=== PATIENT | male | born 1975 | race Caucasian/White ===

== ENCOUNTER → 2016-12-15 | Outpatient (CLI) | payer MEDICARE, OTHER | LOC: YCHH 11:53 | PROVIDERS: ATTEND Family Medicine | DX: I10 Essential (primary) hypertension (principal); R53.83 Other fatigue; E78.5 Hyperlipidemia, unspecified; R60.0 Localized edema ==

== ENCOUNTER → 2017-08-09 | Outpatient (CLI) | payer MEDICARE, OTHER | END | disposition home or self-care (01) | LOC: YCHH 10:06 | PROVIDERS: ATTEND Family Medicine | DX: E78.5 Hyperlipidemia, unspecified (principal); I10 Essential (primary) hypertension; N18.9 Chronic kidney disease, unspecified; D64.9 Anemia, unspecified ==

== ENCOUNTER → 2019-06-15 | Outpatient (CLI) | payer MEDICARE, OTHER | LOC: YCHH 09:20 | PROVIDERS: ATTEND Family Medicine | DX: I10 Essential (primary) hypertension (principal); E78.5 Hyperlipidemia, unspecified; D64.9 Anemia, unspecified; R79.89 Other specified abnormal findings of blood chemistry ==

== ENCOUNTER 2020-05-14 17:59 | Emergency (ER) | payer MEDICARE, OTHER ==
[2020-05-14 18:30] VITALS: O2SAT 97
--- NOTE | 2020-05-14 18:53 | CT ---
EXAM: CT Orbits Without Intravenous Contrast CLINICAL HISTORY: The patient is 44 years old and is Male; fall with right eye pain. Pt is blind. TECHNIQUE: Axial computed tomography images of the orbits without intravenous contrast. Sagittal and coronal reformatted images were created and reviewed. This CT exam was performed using one or more of the following dose reduction techniques: automated exposure control, adjustment of the mA and/or kV according to patient size, and/or use of iterative reconstruction technique. COMPARISON: No relevant prior studies available. FINDINGS: Orbits: Hyperdense right globe which may be from previous retinal hemorrhage. Calcification in the region of the bilateral orbital lenses. Sinuses: Mucosal thickening left maxillary sinus. Right maxillary sinus mucus retention cysts. No air-fluid levels. Mastoid air cells: Right mastoid fluid with osseous sclerotic changes. Visualized left mastoid air cells are clear. Bones/joints: No definite acute fracture identified. Soft tissues: Unremarkable. Dental: Multiple mandibular and maxillary dental caries. IMPRESSION: 1. No definite acute fracture identified. 2. Right mastoid fluid with osseous sclerotic changes. Correlate clinically for chronic mastoiditis. 3. Hyperdense right globe which may be from previous retinal hemorrhage. 4. Multiple dental caries. 5. Mucosal thickening left maxillary sinus. Right maxillary sinus mucus retention cysts. Electronically signed by: Chanel Cortez MD 05/14/2020 6:52 PM CDT
[2020-05-14] MEDS: levoFLOXacin 750MG IV 750 MG in PREMIX BAG 1 BAG IVPB ONE (18:54)
[2020-05-14] MEDS: TETANUS,DIPHTHERIA,PERTUSSIS 1 EA SYG IM ONE (19:00)
--- NOTE | 2020-05-14 19:19 | ED.PDOC ---
History of Present Illness - General Chief Complaint: Laceration Stated Complaint: Laceration right eye Time Seen by Provider: 05/14/20 18:12 Source: patient, RN notes reviewed, Vital Signs reviewed, family - Mother Exam Limitations: no limitations - History of Present Illness Initial Comments: Patient is a 44-year-old white male who presents with his mother with complaints of falling and striking his right eye on the corner of a table. Mother is concerned that the patient cut his eye as there is little fluid leaking from it. Patient denies any pain. Occurred: just prior to arrival Severity: mild Pain Location: face Method of Injury: direct blow - Corner of a table, fall Improving Factors: nothing Worsening Factors: nothing Loss of Consciousness: no loss of consciousness Associated Symptoms (Fall): denies symptoms Allergies/Adverse Reactions: Allergies NO KNOWN ALLERGY Allergy (Verified 05/14/20 18:17) Home Medications: Ambulatory Orders Metoprolol Succinate 05/14/20 Review of Systems - Review of Systems Constitutional: States: no symptoms reported, see HPI. Denies: chills, fever, malaise, weakness EENTM: States: see HPI, eye pain - Patient denies pain., other - Patient is blind already Respiratory: States: no symptoms reported. Denies: cough, short of breath, stridor Cardiology: States: no symptoms reported. Denies: chest pain, palpitations, syncope Gastrointestinal/Abdominal: States: no symptoms reported. Denies: abdominal pain, diarrhea, nausea Genitourinary: States: no symptoms reported Musculoskeletal: States: no symptoms reported. Denies: back pain, neck pain Skin: States: no symptoms reported Neurological: States: see HPI, other - Blindness Endocrine: States: no symptoms reported Hematologic/Lymphatic: States: no symptoms reported All other Systems: No Change from Baseline Past Medical History (General) - Patient Medical History Hx Seizures: No Hx Stroke: No Hx Dementia: No Hx Asthma: No Hx of COPD: No Hx Cardiac Disorders: No Hx Congestive Heart Failure: No Hx Pacemaker: No Hx Hypertension: Yes Hx Thyroid Disease: No Hx Diabetes: No Hx Gastroesophageal Reflux: No Hx Renal Disease: No Hx Cancer: No Hx of HIV: No Hx Hepatitis C: No Hx MRSA: No Surgical History: no surgical history - Vaccination History Hx Tetanus, Diphtheria Vaccination: No Hx Influenza Vaccination: Yes - Social History Hx Tobacco Use: No Hx Alcohol Use: No - Female History Patient is a Female of Child Bearing Age (10 -59 yrs old): No Family Medical History - Family History Mother Family History: Unknown Living Status: Unknown Physical Exam - Physical Exam General Appearance: Alert, Unkempt, Well Developed, Well Hydrated, Well Nourished Head Injury: lacerations - 2 right I there appears to be some serosanguineous fluid draining from the eye. I protection shield was placed. Eye Exam: bilateral abnormal EOM, bilateral other - Patient is blind. Right eye has got corneal clouding. Globe of right eye has what appears to be a laceration with fluid leaking from it. ENT Exam: hearing grossly normal, no dental injury Neck Exam: non-tender, full range of motion, normal alignment Cardiovascular/Respiratory: no M/R/G, normal peripheral pulses, tachycardia Gastrointestinal/Abdominal: normal bowel sounds, non tender, soft Back Exam: normal inspection, no CVA tenderness, no vertebral tenderness Extremity Exam: no evidence of injury, normal range of motion, non-tender Neurologic: no motor/sensory deficits, alert Skin Exam: normal color Progress - Progress Progress: Differential diagnosis: Ruptured globe, orbital wall fracture, skull fracture, intraparenchymal bleed among others. 05/14/20 19:23 Patient accepted at [facility] for further evaluation by ophthalmology. CT scan results in chart as indicated. Patient started on antibiotics including Fortaz and Levaquin. Discussed with the ED physician at [facility], Dr. Hennessy who states she will follow-up with ophthalmology and ensure that the vancomycin get started down there. I discussed the plan of care with the mother and she voices understanding and agreement. Gautam Miles M.D. #[id number] - Results/Orders Results/Orders: EXAM: CT Orbits Without Intravenous Contrast CLINICAL HISTORY: The patient is 44 years old and is Male; fall with right eye pain. Pt is blind. TECHNIQUE: Axial computed tomography images of the orbits without intravenous contrast. Sagittal and coronal reformatted images were created and reviewed. This CT exam was performed using one or more of the following dose reduction techniques: automated exposure control, adjustment of the mA and/or kV according to patient size, and/or use of iterative reconstruction technique. COMPARISON: No relevant prior studies available. \ FINDINGS: Orbits: Hyperdense right globe which may be from previous retinal hemorrhage. Calcification in the region of the bilateral orbital lenses. Sinuses: Mucosal thickening left maxillary sinus. Right maxillary sinus mucus retention cysts. No air-fluid levels. Mastoid air cells: Right mastoid fluid with osseous sclerotic changes. Visualized left mastoid air cells are clear. Bones/joints: No definite acute fracture identified. Soft tissues: Unremarkable. Dental: Multiple mandibular and maxillary dental caries. IMPRESSION: 1. No definite acute fracture identified. 2. Right mastoid fluid with osseous sclerotic changes. Correlate clinically for chronic mastoiditis. 3. Hyperdense right globe which may be from previous retinal hemorrhage. 4. Multiple dental caries. 5. Mucosal thickening left maxillary sinus. Right maxillary sinus mucus retention cysts. Electronically signed by: Chanel Cortez MD 05/14/2020 6:52 Departure - Departure Clinical Impression: Laceration of globe of right eye, Fall Time of Disposition: 19:27 Disposition: Transfer to Hospital Condition: Fair Departure Forms: Patient Portal Self Enrollment Referrals: Jose Rod MD [Primary Care Provider] - 1-5 Days Home Medications: Ambulatory Orders Metoprolol Succinate 05/14/20
[2020-05-14] MEDS ORDERED: SODIUM CHL 0.9% 100ML MINI-BAG 100 ML IVPB ONE (19:50)
[2020-05-14] MEDS: SODIUM CHLORIDE 0.9% IVPB ONE (20:06)
[2020-05-14] MEDS: CEFTAZIDIME 1 GM IVPB ONE (20:06)
[2020-05-14] MEDS: VANCOMYCIN HCL INJ 1,000 MG in SODIUM CHLORIDE 0.9% 250ML 250 ML IVPB ONE (20:10)
[2020-05-14 20:37] VITALS: BP 140/88; TEMP 98.1
== END 2020-05-14 20:10 | disposition short-term general hospital (02) ==
LOC: ER 17:59
DX: S05.31XA Ocular laceration without prolapse or loss of intraocular tissue, right eye, initial encounter (principal); I10 Essential (primary) hypertension; W18.00XA Striking against unspecified object with subsequent fall, initial encounter; Y92.9 Unspecified place or not applicable
CPT/HCPCS: 36415; 70480; 80048; 85025; 90471; 90715; J1956; J7050